=== PATIENT | female | born 1975 | race Caucasian/White ===

== ENCOUNTER 2017-11-16 18:00 | Inpatient (IN) | payer OTHER ==
[~2017-11-16] VITALS: Ht 147.3 cm; Wt 61.5 kg
[~2017-11-16 18:00] MED LIST: ASCO500; ASCO500 PO; DOCU100 PO; ERGO400 PO; MULVITMINF PO; RIBA200; [UNRECOGNIZED DRUG - REMARK]
[2017-11-16] MEDS ORDERED: Vitamin C100 M1 PO (18:25)
[2017-11-16] MEDS ORDERED: POLYOX WSR-3011 GM PO (18:25)
[2017-11-16] MEDS ORDERED: VITAMIN D-32000 UNIT PO (18:26)
[2017-11-16] MEDS ORDERED: MIRALAX17 GM PO (18:27)
[2017-11-16] MEDS ORDERED: CETAPHIL473 ML TP (18:27)
[2017-11-16] MEDS ORDERED: ACET325 PO (18:27)
[2017-11-16] MEDS ORDERED: PSEU120ER PO (18:28)
[2017-11-16] MEDS ORDERED: DEXT30SU PO (18:28)
[2017-11-16 19:25] LABS: BASOPHILS ABSOLUTE AUTO 0.05 K/mm3 (0.00-0.23); BASOPHILS PERCENT AUTO 1 % (0-2); EOSINOPHILS ABSOLUTE AUTO 0.03 K/mm3 (0.00-0.68); EOSINOPHILS PERCENT AUTO 1 % (0-6); Hematocrit 34.9 % (33.0-51.0); Hemoglobin 11.5 g/dL (11.5-16.0); IMMATURE GRAN PERCENT AUTO 2 % (0-1); LYMPHOCYTES ABSOLUTE AUTO 1.24 K/mm3 (0.84-5.20); LYMPHOCYTES PERCENT AUTO 19 % (21-46); MONOCYTES ABSOLUTE AUTO 0.48 K/mm3 (0.16-1.47); MONOCYTES PERCENT AUTO 7 % (4-13); Mean Corpuscular HGB 34.2 pg (26.0-34.0); Mean Corpuscular Volume 104 fL (80-100); Mean Platelet Volume 10.3 fL (9.1-12.4); NEUTROPHILS ABSOLUTE AUTO 4.69 K/mm3 (1.96-9.15); NEUTROPHILS PERCENT AUTO 71 % (41-73); Platelet Count 169 K/mm3 (150-400); RDW Coefficient Variation 14.6 % (11.7-14.2); RDW Standard Deviation 56.8 fL (35.1-46.3); Red Blood Cell Count 3.36 M/mm3 (3.80-5.20); White Blood Cell Count 6.59 K/mm3 (4.00-11.30)
[2017-11-16 19:40] LABS: International Normalized Ratio 1.06
[2017-11-16 19:44] LABS: Alanine Aminotransfer (ALT/SGP 44 U/L (12-78); Albumin, Blood 3.4 g/dL (3.4-5.0); Albumin/Globulin Ratio 0.8 (0.8-1.8); Alk Phos 104 U/L (50-136); Anion Gap 7 mmol/L (6-16); Aspartate Aminotrans (AST/SGOT 50 U/L (12-37); Bilirubin, Total 0.2 mg/dL (0.1-1.0); Blood Urea Nitrogen 30 mg/dL (8-24); Bun/Creatinine Ratio 16.8 (12.0-20.0); CO2, Blood 25 mmol/L (21-32); Calcium, Blood 8.5 mg/dL (8.5-10.1); Chloride, Blood 104 mmol/L (98-108); Creatinine, Blood 1.79 mg/dL (0.40-1.00); Ethanol (Alcohol), Blood, Med <3 mg/dL; Globulin, Blood 4.1 g/dL (2.2-4.0); Glomerular Filtration Rate 33 (60-); Glucose, Blood 114 mg/dL (70-99); Potassium, Blood 4.2 mmol/L (3.5-5.5); Sodium, Blood 136 mmol/L (136-145); Total Protein, Blood 7.5 g/dL (6.4-8.2)
[2017-11-16 21:33] LABS: Source, Urine Catheter
[2017-11-16 21:52] LABS: Bilirubin, Urine Neg (Neg); Blood, Urine 1+ (Neg); Glucose Qualitative, Urine Neg (Neg); Ketones, Urine Neg (Neg); Leukocyte Esterase, Urine 2+ (Neg); Nitrite, Urine Neg (Neg); Protein, Urine Neg (Neg); Specific Gravity, Urine 1.015 (1.003-1.022); Urobilinogen, Urine NORM (Normal)
[2017-11-16 21:53] LABS: Appearance, Urine Hazy (Clear); Color, Urine Yellow (P-Yellow)
[2017-11-16 21:54] LABS: Bacteria Many /hpf; Squamous Epithelial Cells Rare /hpf (Few); White Blood Cells, Urine TNTC /hpf (0-5)
[2017-11-16 23:44] LABS: U Amphetamine Screen Not Detected; U Barbituate Screen Not Detected; U Benzodiazapine Screen Not Detected; U Buprenorphine Screen Not Detected; U Cannabinoids Screen Not Detected; U Cocaine Screen Not Detected; U Methadone Screen Not Detected; U Methamphetamine Screen Not Detected; U Opiates Screen Not Detected; U Oxycodone Screen Not Detected; U Phencyclidine Screen Not Detected; U Propoxyphene Screen Not Detected
[2017-11-17 00:24] LABS: Bilirubin, Urine Neg (Neg); Blood, Urine Neg (Neg); Glucose Qualitative, Urine Neg (Neg); Ketones, Urine Neg (Neg); Leukocyte Esterase, Urine 3+ (Neg); Nitrite, Urine Neg (Neg); Protein, Urine Neg (Neg); Specific Gravity, Urine 1.005 (1.003-1.022); Urobilinogen, Urine NORM (Normal)
[2017-11-17 00:25] LABS: Appearance, Urine Clear (Clear); Color, Urine Pale Yellow (P-Yellow)
[2017-11-17 00:32] LABS: Bacteria Mod /hpf; Red Blood Cells, Urine Not Seen /hpf (0-2); Squamous Epithelial Cells Not Seen /hpf (Few); White Blood Cells, Urine 25-50 /hpf (0-5)
[2017-11-17 04:02] LABS: Hematocrit 33.8 % (33.0-51.0); Hemoglobin 11.5 g/dL (11.5-16.0); Mean Corpuscular HGB 34.3 pg (26.0-34.0); Mean Platelet Volume 10.7 fL (9.1-12.4); Platelet Count 168 K/mm3 (150-400); RDW Coefficient Variation 14.8 % (11.7-14.2); RDW Standard Deviation 54.7 fL (35.1-46.3); Red Blood Cell Count 3.35 M/mm3 (3.80-5.20); White Blood Cell Count 9.83 K/mm3 (4.00-11.30)
[2017-11-17 04:04] LABS: Mean Corpuscular Volume 101 fL (80-100)
[2017-11-17 04:19] LABS: Bun/Creatinine Ratio 17.5 (12.0-20.0); Calcium, Blood 7.8 mg/dL (8.5-10.1); Creatinine, Blood 1.54 mg/dL (0.40-1.00); Potassium, Blood 4.8 mmol/L (3.5-5.5)
[2017-11-21] MEDS ORDERED: CEFU500T30 PO (11:50)
[2017-11-21] MEDS ORDERED: CYCL10 PO (11:51)
[2017-11-21] MEDS ORDERED: BENADRYL25 MG PO (11:51)
[2017-11-21] MEDS ORDERED: FAMO20 PO (11:52)
[2017-11-21] MEDS ORDERED: HYDR1TAB94 PO (11:53)
[2017-11-21] MEDS ORDERED: Milk Of Ma400 MG/5 M PO (11:53)
[2017-11-21] MEDS ORDERED: NYSTATIN1 EAC1 TOP (11:54)
[2017-11-21] MEDS ORDERED: SENN187 PO (11:54)
== END 2017-11-23 11:40 | disposition home or self-care (01) | DRG 536 ==
LOC: ER 18:00 → SURS 22:02
PROVIDERS: Emergency Medicine; Family Medicine
DX: S32.82XA Multiple fractures of pelvis without disruption of pelvic ring, initial encounter for closed fracture (principal); S32.10XA Unspecified fracture of sacrum, initial encounter for closed fracture; S22.43XA Multiple fractures of ribs, bilateral, initial encounter for closed fracture; Q28.9 Congenital malformation of circulatory system, unspecified; Q60.2 Renal agenesis, unspecified; N39.0 Urinary tract infection, site not specified; V49.9XXA Car occupant (driver) (passenger) injured in unspecified traffic accident, initial encounter; K59.00 Constipation, unspecified; Q90.9 Down syndrome, unspecified; Z99.3 Dependence on wheelchair; S41.112A Laceration without foreign body of left upper arm, initial encounter; N18.3 Chronic kidney disease, stage 3 (moderate); B96.20 Unspecified Escherichia coli [E. coli] as the cause of diseases classified elsewhere
CPT/HCPCS: 36415; 51701; 51702; 70450; 71260; 72125; 73560-LT; 74177; 80048; 80053; 81001; 81025; 82947; 83690; 85025; 85027; 85610; 85730; 86850; 86900; 86901; 87077; 87086; 87186; 90471; 90714; 96361; 96374; 96375; 96376; 97116; 97162; 97167; 97530; 97535; 99285; G0480; G8978; G8979; G8987; G8988; J0696; J2405; J3010; J7030; Q9967

== ENCOUNTER → 2022-04-13 | Outpatient (CLI) | payer OTHER ==
[~2022-04-13] MED LIST changes: +ACET325 PO; +BENADRYL25 MG PO; +CEFU500T30 PO; +CETAPHIL473 ML TP; +CYCL10 PO; +DEXT30SU PO; +FAMO20 PO; +HYDR1TAB94 PO; +MIRALAX17 GM PO; +Milk Of Ma400 MG/5 M PO; +NYSTATIN1 EAC1 TOP; +POLYOX WSR-3011 GM PO; +PSEU120ER PO; +SENN187 PO; +VITAMIN D-32000 UNIT PO; +Vitamin C100 M1 PO
[2022-04-13 16:07] LABS: SARS-Cov-2 (COVID-19) PCR, MMC NEGATIVE (NEGATIVE)
== END | disposition home or self-care (01) ==
LOC: LAB SHORT 13:42 → LAB 13:42
PROVIDERS: Family Medicine
DX: Z20.822 Contact with and (suspected) exposure to COVID-19 (principal)
CPT/HCPCS: U0004

== ENCOUNTER → 2022-08-18 | Outpatient (CLI) | payer OTHER | LOC: LAB SHORT 11:45 → LAB 11:45 | DX: R53.83 Other fatigue (principal); R10.0 Acute abdomen | CPT/HCPCS: 87077; 87086; 87186 ==